=== PATIENT | female | born 1985 | race Caucasian/White ===

== ENCOUNTER 2017-01-14 16:00 | Emergency (ER) | payer OTHER ==
[~2017-01-14] VITALS: Ht 162.6 cm; Wt 62.0 kg
[~2017-01-14 16:00] MED LIST: ZANTAC150 MG PO
[2017-01-14 16:37] LABS: HEMATOCRIT 44.5 % (36.0-46.0); MCH 32.4 PG (29.0-34.0); MCHC 34.2 G/DL (30.0-36.0); MCV 94.9 FL (83-99); MEAN PLAT.VOLUME 10.5 uM^3 (9.5-12.4); PLATELET COUNT 183 K/uL (156-360); RBC DIS.WIDTH-CV 11.9 % (11.8-14.6); RBC DIS.WIDTH-SD 41.4 % (39-53); RED BLOOD COUNT 4.69 M/uL (3.80-5.20); WHITE BLOOD COUNT 9.3 K/uL (4.1-10.2)
[2017-01-14 16:48] LABS: CHLORIDE 107 mEq/L (99-109); POTASSIUM 3.8 mEq/L (3.7-5.4); SODIUM 137 mEq/L (136-147)
[2017-01-14 16:50] LABS: GLUCOSE 85 mg/dL (70-99)
[2017-01-14 16:51] LABS: ANION GAP 8 MEQ/L (2-14)
[2017-01-14 16:54] LABS: GFR ESTIMATE (CALCULATED) > 59 mL/min/; UREA NITROGEN (BUN) 11 mg/dL (9-23)
[2017-01-14 16:58] LABS: TROP-I INTERPRETATION NEGATIVE; TROPONIN-I < 0.01 ng/mL (0.0-0.30)
[2017-01-14] MEDS ORDERED: METHADONE5 MG PO (18:57)
[2017-01-14 20:42] LABS: TROP-I INTERPRETATION NEGATIVE; TROPONIN-I < 0.01 ng/mL (0.0-0.30)
[2017-01-14] MEDS ORDERED: ZITHROMAX250 MG PO (20:50)
[2017-01-14] MEDS ORDERED: INDOCIN50 MG PO (20:50)
[2017-01-14] MEDS ORDERED: TESSALON PERLE100 MG PO (20:50)
[2017-01-14 21:19] VITALS: BP 135/88
== END 2017-01-14 21:20 | disposition home or self-care (01) ==
LOC: EME 16:00
PROVIDERS: Physician Assistant
DX: R07.81 Pleurodynia (principal); R09.1 Pleurisy; J06.9 Acute upper respiratory infection, unspecified; M25.512 Pain in left shoulder; R79.1 Abnormal coagulation profile; F11.99 Opioid use, unspecified with unspecified opioid-induced disorder; Z72.0 Tobacco use
CPT/HCPCS: 71020; 71275; 80048; 84484; 85027; 85379; 93005; 99281; 99285; J1885; J7030